=== PATIENT | female | born 1995 | race American Indian/Alaskan Native ===

== ENCOUNTER 2019-03-12 21:57 | Emergency (ER) | payer MEDICAID, OTHER ==
[2019-03-12 23:15] VITALS: BP 103/60
[2019-03-13 00:16] LABS: HCG Qualitative,Urine Positive (Negative)
[2019-03-13 00:18] LABS: Bacteria,Urine 2+ /HPF (Negative); Bilirubin,Urine NEG (Negative); Blood,Urine NEG (Negative); Color,Urine Straw (Yellow); Protein,Urine <15 mg/dL mg/dL (Negative); Urobilinogen,Urine < 2.0 mg/dL (<2.0)
[2019-03-13] MEDS ORDERED: TYLENOL PO ONE (00:29)
[2019-03-13 00:51] LABS: Hematocrit 34.5 % (30.3-42.9); Hemoglobin 11.4 gm/dl (10.1-14.3); Mean Corpuscular HGB Conc 33 % (30-34); Mean Corpuscular Volume 83 fl (79-97); Platelet Count 303 K/mm3 (140-440); Red Blood Count 4.18 M/mm3 (3.65-5.03); Red Cell Distribution Width 15.3 % (13.2-15.2)
[2019-03-13 01:13] LABS: Alanine Aminotransferase 41 units/L (7-56); Albumin 3.5 g/dL (3.9-5); BUN/Creatinine Ratio 16; Blood Urea Nitrogen 8 mg/dL (7-17); Calcium 9.4 mg/dL (8.4-10.2); Hemolysis Index 34
[2019-03-13 03:23] LABS: Band Neutrophils # (Manual) 0.1 K/mm3; Basophils % (Manual) 0 % (0.0-1.8); Total Cells Counted 100
[2019-03-13 03:24] LABS: Anisocytosis 1+; Hypochromasia 1+
--- NOTE | 2019-03-13 04:31 | Emergency Department Report ---
ED Abdominal Pain HPI - General Chief Complaint: Abdominal Pain Stated Complaint: ABD CRAMPS Time Seen by Provider: 03/13/19 00:10 Source: patient Mode of arrival: Ambulatory Limitations: No Limitations - History of Present Illness Initial Comments: Patient is a A0 23-year-old -[place] female who is approximately 6 weeks gestation and who has a history of gestational hypertension presents to the ED with complaint of acute onset persistent suprapubic pain for the last 2 days. Patient states that she did a home test which was positive but wasn't sure. Patient denies fever, chills, nausea, vomiting, dizziness, diarrhea, dysuria, urinary frequency and urgency, vaginal bleeding, low back pain or History headache. MD Complaint: abdominal pain (suprapubic) -: Sudden, days(s) (2) Location: suprapubic Radiation: suprapubic Migration to: suprapubic Severity: moderate Severity scale (0 -10): 4 Quality: aching, dull Consistency: constant Improves With: nothing Worsens With: nothing Associated Symptoms: denies: nausea, vomiting, diarrhea, fever, chills, dysuria, hematemesis, hematochezia, melena, hematuria, anorexia, other - Related Data LMP (females 10-50): 2 months Home Medications Medication Instructions Recorded Confirmed Last Taken One-A-Day 1 Dha Sfgl PO DAILY 08/31/18 08/30/18 0900 Previous Rx's Medication Instructions Recorded Last Taken Type Ciprofloxacin HCl [Cipro] 500 mg PO Q12H #14 tab 01/23/15 08/30/18 09:00 Rx Ibuprofen [Motrin 800 MG tab] 800 mg PO TID PRN #21 tablet 01/23/15 08/30/18 09:00 Rx Allergies Allergy/AdvReac Type Severity Reaction Status Date / Time No Known Allergies Allergy Verified 03/27/14 13:24 ED Review of Systems ROS: Stated complaint: ABD CRAMPS Other details as noted in HPI Comment: All other systems reviewed and negative Constitutional: denies: chills, fever Eyes: denies: eye pain, eye discharge, vision change ENT: denies: ear pain, throat pain Respiratory: denies: cough, shortness of breath, wheezing Cardiovascular: denies: chest pain, palpitations Endocrine: no symptoms reported Gastrointestinal: abdominal pain (suprapubic). denies: nausea, diarrhea Genitourinary: denies: urgency, dysuria, discharge Musculoskeletal: denies: back pain, joint swelling, arthralgia Skin: denies: rash, lesions Neurological: denies: headache, weakness, paresthesias Psychiatric: denies: anxiety, depression Hematological/Lymphatic: denies: easy bleeding, easy bruising ED Past Medical Hx - Past Medical History Previous Medical History?: Yes Hx Hypertension: Yes Hx Diabetes: No Hx Deep Vein Thrombosis: No Hx Renal Disease: No Hx Sickle Cell Disease: No Hx Seizures: No Hx Asthma: No Hx HIV: No Additional medical history: eczema - Surgical History Past Surgical History?: No - Social History Smoking Status: Never Smoker Substance Use Type: None - Medications Home Medications: Home Medications Medication Instructions Recorded Confirmed Last Taken Type Ciprofloxacin HCl [Cipro] 500 mg PO Q12H #14 tab 01/23/15 08/31/18 08/30/18 09:00 Rx Ibuprofen [Motrin 800 MG tab] 800 mg PO TID PRN #21 tablet 01/23/15 08/31/18 08/30/18 09:00 Rx One-A-Day 1 Dha Sfgl PO DAILY 08/31/18 08/30/18 History 0900 ED Physical Exam - General Limitations: No Limitations General appearance: alert, in no apparent distress - Head Head exam: Present: atraumatic, normocephalic, normal inspection - Eye Eye exam: Present: normal appearance, PERRL, EOMI. Absent: scleral icterus, conjunctival injection Pupils: Present: normal accommodation - ENT ENT exam: Present: normal exam, normal orophraynx, mucous membranes moist, TM's normal bilaterally, normal external ear exam - Neck Neck exam: Present: normal inspection, full ROM - Respiratory Respiratory exam: Present: normal lung sounds bilaterally. Absent: respiratory distress, wheezes, rales, rhonchi, chest wall tenderness, accessory muscle use, decreased breath sounds, prolonged expiratory - Cardiovascular Cardiovascular Exam: Present: regular rate, normal rhythm, normal heart sounds. Absent: systolic murmur, diastolic murmur, rubs, gallop - GI/Abdominal GI/Abdominal exam: Present: soft, tenderness (mild in suprapubic area), normal bowel sounds. Absent: distended, guarding, hyperactive bowel sounds, hypoactive bowel sounds, organomegaly - Rectal Rectal exam: Present: deferred - Extremities Exam Extremities exam: Present: normal inspection, full ROM, normal capillary refill - Back Exam Back exam: Present: normal inspection, full ROM. Absent: tenderness, CVA tenderness (L), muscle spasm, paraspinal tenderness, vertebral tenderness - Neurological Exam Neurological exam: Present: alert, oriented X3, CN II-XII intact, normal gait, reflexes normal - Psychiatric Psychiatric exam: Present: normal affect, normal mood - Skin Skin exam: Present: warm, dry, intact, normal color. Absent: rash ED Course Vital Signs 03/12/19 23:11 Temperature 97.8 F Pulse Rate 58 L Respiratory 18 Rate Blood Pressure 103/60 O2 Sat by Pulse 100 Oximetry - Reevaluation(s) Reevaluation #1: 03/13/19 05:55 Patient is alert and oriented 3 and is not in distress with normal vital signs. Lab test results were reviewed and [place] [id number], and a positive urine test. Urinalysis unremarkable. Patient was treated for pain in the ED and transvaginal and ultrasound she'll a single IUP at approximately 6 weeks' gestation. heart rate of 121 bpm. The right ear is normal but the left ovary containing cysts measuring up to 2.7 cm. Patient was advised to maintain complete pelvic rest, and to follow-up with the SENIOR MANUFACTURING TEST ENGINEER physician in 5-7 days for reevaluation. Patient advised to return to the ED immediately if symptoms get worse. ED Medical Decision Making - Lab Data Result diagrams: 03/13/19 00:32 03/13/19 00:36 - Radiology Data Radiology results: report reviewed, image reviewed US / Transvaginal US: shows a single IUP at approximately 6 weeks' gestation with a FHR of 121 bpm. Left ovary contains cysts measuring 2.7 cm but the right ovary is unremarkable - Medical Decision Making Patient is alert and oriented 3 and is not in distress with normal vital signs. Lab test results were reviewed and [place] [id number], and a positive urine test. Urinalysis unremarkable. Jennifer arriaga was treated for pain in the ED and transvaginal and ultrasound shows a single IUP at approximately 6 weeks' gestation. heart rate of 121 bpm. The right ear is normal but the left ovary containing cysts measuring up to 2.7 cm. Patient was advised to maintain complete pelvic rest, and to follow- up with the SENIOR MANUFACTURING TEST ENGINEER physician in 5-7 days for reevaluation. Patient advised to return to the ED immediately if symptoms get worse. - Differential Diagnosis Threatened miscarriage, Acute UTI, Constipation, Ectopic Critical care attestation.: If time is entered above; I have spent that time in minutes in the direct care of this critically ill patient, excluding procedure time. ED Disposition Clinical Impression: Threatened miscarriage in early , Abdominal pain during in first trimester Disposition: DC- TO HOME OR SELFCARE Is pt being admited?: No Does the pt Need Aspirin: No Condition: Stable Instructions: Threatened Miscarriage (ED), Abdominal Pain (ED) Additional Instructions: Maintain a complete pelvic rest. Follow-up with your SENIOR MANUFACTURING TEST ENGINEER physician in 5-7 days for reevaluation. Return to the ED immediately if symptoms get worse. Referrals: CALEB LYNCH MD [Primary Care Provider] - 3-5 Days Time of Disposition: 06:00 Print Language: FINNISH
--- NOTE | 2019-03-13 05:07 | Ultrasound Report ---
PROCEDURE: US OB <= 14 WEEKS FETUS TECHNIQUE: Real-time transabdominal sonography of the uterus, placenta, amniotic fluid, adnexa, and fetus was performed with image documentation. Measurements were obtained to determine age/size. M-mode Doppler was used to document heartbeat. ADDITIONAL GESTATION: None. HISTORY: pain COMPARISONS: None . FINDINGS: CRL: 3.2 mm, which corresponds to a gestational age of: 6 weeks, 0 days. Yolk Sac: Appropriate for gestational age. . Embryonic Cardiac Activity: 121 bpm . Gestational Sac: Size and shape are appropriate for gestational age Placenta: Normal Amniotic fluid: Appropriate for gestational age. Cervix: Normal. Right Ovary: Normal . Left Ovary: There are cysts measuring up to 2.7 cm. . Estimated delivery date: 11/06/2019 . Uterus and adnexa: Normal. IMPRESSION: Single live intrauterine gestation at approximately 6 weeks . EDC by US 11/06/2019 . This document is electronically signed by Nathan Morrow MD., March 13 2019 05:05:40 AM ET
--- NOTE | 2019-03-13 05:08 | Ultrasound Report ---
PROCEDURE: US OB TRANSVAGINAL TECHNIQUE: Real-time transvaginal sonography of the uterus, placenta, amniotic fluid, adnexa, and fe tus was performed with image documentation. Measurements were obtained to determine age/size. M -mode Doppler was used to document heartbeat. ADDITIONAL GESTATION: None. HISTORY: pain COMPARISONS: None . FINDINGS: CRL: 3.2 mm, which corresponds to a gestational age of: 6 weeks, 0 days. Yolk Sac: Appropriate for gestational age. . Embryonic Cardiac Activity: 121 bpm . Gestational Sac: Size and shape are appropriate for gestational age Placenta: Normal Amniotic fluid: Appropriate for gestational age. Cervix: Normal. Right Ovary: Normal . Left Ovary: There are cysts measuring up to 2.7 cm. . Estimated delivery date: 11/06/2019 . Uterus and adnexa: Normal. IMPRESSION: Single live intrauterine gestation at approximately 6 weeks . EDC by US 11/06/2019 . This document is electronically signed by Nathan Morrow MD., March 13 2019 05:06:10 AM ET
== END 2019-03-13 06:09 | disposition home or self-care (01) ==
LOC: ED 21:57
DX: O20.0 Threatened abortion (principal); O16.1 Unspecified maternal hypertension, first trimester; Z3A.01 Less than 8 weeks gestation of pregnancy
CPT/HCPCS: 36415; 76801; 76817; 80053; 81001; 81025; 84702; 85007; 85025; 99284

== ENCOUNTER 2019-03-24 15:33 | Emergency (ER) | payer SELFPAY ==
[2019-03-24] MEDS ORDERED: ALUM-MAG HYDROX-SIMETH 200-200-20MG/5ML PO ONE (15:42)
--- NOTE | 2019-03-24 15:42 | Event Note ---
ED Screening Note ED Screening Note: NV OF PAIN RAD UP THROAT NO CARE NO VAG BLEEDING NORMAL DC 8-9 W CANT RECALL LMP TEARFU TACHY This initial assessment/diagnostic orders/clinical plan/treatment(s) is/are subject to change based on patients health status, clinical progression and re- assessment by fellow clinical providers in the ED. Further treatment and workup at subsequent clinical providers discretion. Patient/guardian urged not to elope from the ED as their condition may be serious if not clinically assessed and managed. Initial orders include:
[2019-03-24] MEDS ORDERED: ZOFRAN IV ONE (15:43)
[2019-03-24] MEDS ORDERED: NACL 0.9% 1000 ML 1,000 ML IV ONE (15:43)
[2019-03-24 16:09] LABS: Hematocrit 37.7 % (30.3-42.9); Hemoglobin 12.2 gm/dl (10.1-14.3); Mean Corpuscular HGB Conc 32 % (30-34); Mean Corpuscular Volume 82 fl (79-97); Platelet Count 322 K/mm3 (140-440); Red Cell Distribution Width 15.6 % (13.2-15.2)
[2019-03-24 16:34] LABS: Alanine Aminotransferase 33 units/L (7-56); Albumin 3.7 g/dL (3.9-5); BUN/Creatinine Ratio 13; Blood Urea Nitrogen 5 mg/dL (7-17); Calcium 9.4 mg/dL (8.4-10.2); Hemolysis Index 14
[2019-03-24] MEDS ORDERED: TYLENOL PO ONE (16:36)
[2019-03-24] MEDS ORDERED: ROCEPHIN/NS 1 GM/50 ML 1 GM/50 ML BAG IV ONE (16:38)
--- NOTE | 2019-03-24 17:20 | Emergency Department Report ---
HPI - General Chief Complaint: Nausea/Vomiting/Diarrhea Time Seen by Provider: 03/24/19 15:39 - HPI HPI: Room 24 The patient is a 23-year-old female presenting with a chief complaint of sore throat and fever. Patient states the past 2 days she has had pain in her throat and chest. Patient states she noticed a fever yesterday. Patient has difficulty eating secondary to pain with swallowing. Patient denies abdominal pain or vaginal bleeding Location: Throat Duration: [See above] Quality: [See above] Severity: [See above] Modifying factors: [see above] Context: [see above] Mode of transportation: [not driving] ED Past Medical Hx - Past Medical History Previous Medical History?: No Hx Hypertension: Yes Additional medical history: eczema - Surgical History Past Surgical History?: No - Family History Family history: no significant - Social History Smoking Status: Never Smoker Substance Use Type: None (denies illicit drug use) - Medications Home Medications: Home Medications Medication Instructions Recorded Confirmed Last Taken Type Ciprofloxacin HCl [Cipro] 500 mg PO Q12H #14 tab 01/23/15 08/31/18 08/30/18 09:00 Rx Ibuprofen [Motrin 800 MG tab] 800 mg PO TID PRN #21 tablet 01/23/15 08/31/18 08/30/18 09:00 Rx One-A-Day 1 Dha Sfgl PO DAILY 08/31/18 08/30/18 History 0900 Acetamin/Codeine 120-12Mg/5 ml 5 ml PO Q6H PRN #100 ml 03/24/19 Unknown Rx [Tylenol/Codeine] Amoxicillin/K Clav Oral Liqd 10 ml PO BID #200 bottle 03/24/19 Unknown Rx [Augmentin 250-62.5 mg/5 ml] ED Review of Systems ROS: Stated complaint: CHEST PAIN Other details as noted in HPI Constitutional: fever ENT: throat pain Gastrointestinal: denies: abdominal pain Physical Exam - Physical Exam Vital Signs: Vital Signs 03/24/19 03/24/19 15:43 16:38 Temperature 99.1 F 102.8 F H Pulse Rate 130 H 111 H Respiratory 18 20 Rate Blood Pressure 136/80 [Right] O2 Sat by Pulse 98 98 Oximetry Vital Signs 03/24/19 03/24/19 03/24/19 15:43 16:38 17:35 Temperature 99.1 F 102.8 F H Pulse Rate 130 H 111 H Respiratory 18 20 16 Rate Blood Pressure Blood Pressure 136/80 [Right] O2 Sat by Pulse 98 98 Oximetry 03/24/19 03/24/19 03/24/19 17:56 18:00 18:44 Temperature 99.4 F Pulse Rate 80 Respiratory 20 Rate Blood Pressure 109/62 Blood Pressure 105/61 [Right] O2 Sat by Pulse 99 98 97 Oximetry 03/24/19 03/24/19 18:45 19:00 Temperature Pulse Rate Respiratory Rate Blood Pressure 109/62 105/61 Blood Pressure [Right] O2 Sat by Pulse 98 98 Oximetry Physical Exam: GENERAL: The patient is well-developed well-nourished female lying on stretcher appearing to be in mild discomfort. [] HEENT: Normocephalic. Atraumatic. Extraocular motions are intact. 2+ tonsils bilaterally with exudate NECK: Supple. Trachea midline CHEST/LUNGS: Clear to auscultation. There is no respiratory distress noted. HEART/CARDIOVASCULAR: Regular. There is tachycardia. There is no gallop rub or murmur. ABDOMEN: Abdomen is soft, nontender. Patient has normal bowel sounds. There is no abdominal distention. SKIN: There is no rash. There is no edema. There is no diaphoresis. NEURO: The patient is awake, alert, and oriented. The patient is cooperative. The patient has normal speech MUSCULOSKELETAL: There is no evidence of acute injury. ED Course Vital Signs 03/24/19 03/24/19 15:43 16:38 Temperature 99.1 F 102.8 F H Pulse Rate 130 H 111 H Respiratory 18 20 Rate Blood Pressure 136/80 [Right] O2 Sat by Pulse 98 98 Oximetry ED Medical Decision Making - Lab Data Result diagrams: 03/24/19 15:57 03/24/19 15:57 - Radiology Data Radiology results: report reviewed (pelvic ultrasound), image reviewed (pelvic ultrasound) [facility] [address] [place] [address] Ultrasound Report Signed Patient: MISAEL BILLY MR #: [id number] : 1995 Acct:[id number] Age/Sex: 23 / F ADM Date: 03/24/19 Loc: ED Attending Dr: Ordering Physician: JORGE LUU Date of Service: 03/24/19 Procedure(s): US OB transvaginal Accession Number(s): [id number] cc: JORGE DupontValentina LUU PROCEDURE: US OB TRANSVAGINAL TECHNIQUE: Real-time transabdominal and transvaginal sonography of the uterus, placenta, amniotic fluid, adnexa, and fetus was performed with image documentation. Measurements were obtained to determine age/size. M-mode Doppler was used to document heartbeat. HISTORY: abd pain with nausea and vomiting. Pelvic pain with cramping. Serum beta hCG quantitation 81,206. Unknown LMP. COMPARISONS: Ultrasound pelvis 03/13/2019 . FINDINGS: CRL: 15.9 mm, which corresponds to a gestational age of: 8 weeks, 0 days. Yolk Sac: Normal . Embryonic Cardiac Activity: 183 BPM . Gestational Sac: Normal . Uterus: Enlarged measuring 9.6 x 7.3 x 7.4 cm Right Ovary: Normal . Right ovary measures 2.8 x 1.5 x 1.9 cm Left Ovary: Normal . Left ovary measures 3.6 x 2.4 x 3.1 cm. There is a cyst in left ovary, likely corpus luteum Estimated delivery date: 11/03/2019 . Comment: Complete anatomic survey at 18-20 weeks suggested . IMPRESSION: 1. Single living intrauterine gestation at approximately 8 weeks 0 days . 2. EDC by US 11/03/2019 . This document is electronically signed by Diamond Taylor MD., March 24 2019 07:45:09 PM ET Transcribed By: [facility] Dictated By: DIAMOND TAYLOR MD Electronically Authenticated By: DIAMOND TAYLOR MD Signed Date/Time: 03/24/191946 DD/ 50 TD/TT: 03/24/191850 - Differential Diagnosis tonsillitis Critical care attestation.: If time is entered above; I have spent that time in minutes in the direct care of this critically ill patient, excluding procedure time. ED Disposition Clinical Impression: Exudative tonsillitis, Acute sore throat Disposition: DC-01 TO HOME OR SELFCARE Is pt being admited?: No Does the pt Need Aspirin: No Condition: Stable Instructions: Tonsillitis (ED) Additional Instructions: Return to the emergency department immediately should you develop worsening symptoms, fever, inability to tolerate food or liquid or any other concerns. Prescriptions: Amoxicillin/K Clav Oral Liqd [Augmentin 250-62.5 mg/5 ml] 10 ml PO BID #200 bottle Acetamin/Codeine 120-12Mg/5 ml [Tylenol/Codeine] 5 ml PO Q6H PRN #100 ml PRN Reason: Pain Referrals: [facility] MD NATI [Primary Care Provider] - 3-5 Days DIAMOND LEE MD [Staff Physician] - 3-5 Days (Dr. Lee is an crust sorter. (Ear nose and throat doctor). Please follow up in for further evaluation) RYLAND CARR MD [Staff Physician] - 3-5 Days (Dr. Carr is an SPRINKLING SYSTEM IRRIGATOR. Please follow up with him to be established as a patient) Time of Disposition: 20:11
[2019-03-24 19:09] VITALS: BP 105/61
[2019-03-24] MEDS ORDERED: LIDOCAINE VISCOUS 2% PO ONE (19:35)
--- NOTE | 2019-03-24 19:47 | Ultrasound Report ---
PROCEDURE: US OB TRANSVAGINAL TECHNIQUE: Real-time transabdominal and transvaginal sonography of the uterus, placenta, amniotic fl uid, adnexa, and fetus was performed with image documentation. Measurements were obtained to determin e age/size. M-mode Doppler was used to document heartbeat. HISTORY: abd pain with nausea and vomiting. Pelvic pain with cramping. Serum beta hCG quantitation 81 ,206. Unknown LMP. COMPARISONS: Ultrasound pelvis 03/13/2019 . FINDINGS: CRL: 15.9 mm, which corresponds to a gestational age of: 8 weeks, 0 days. Yolk Sac: Normal . Embryonic Cardiac Activity: 183 BPM . Gestational Sac: Normal . Uterus: Enlarged measuring 9.6 x 7.3 x 7.4 cm Right Ovary: Normal . Right ovary measures 2.8 x 1.5 x 1.9 cm Left Ovary: Normal . Left ovary measures 3.6 x 2.4 x 3.1 cm. There is a cyst in left ovary, likely c orpus luteum Estimated delivery date: 11/03/2019 . Comment: Complete anatomic survey at 18-20 weeks suggested . IMPRESSION: 1. Single living intrauterine gestation at approximately 8 weeks 0 days . 2. EDC by US 11/03/2019 . This document is electronically signed by Diamond Taylor MD., March 24 2019 07:45:09 PM ET
--- NOTE | 2019-03-24 19:56 | Ultrasound Report ---
PROCEDURE: Limited transabdominal obstetrical ultrasound. TECHNIQUE: Real-time limited sonographic examination was performed for evaluation of each fetus with image documentation (1 or more fetuses). HISTORY: Pelvic pain, nausea and vomiting, . COMPARISONS: Obstetrical ultrasound 03/13/2019. FINDINGS: The uterus measures 9.6 cm x 7.3 cm x 7.4 cm. The myometrium appears normal. There is an intrauterine gestational sac. A pole is present. Cardiac activity is documented at 183 bpm. The crown-rump length measurement is 15.9 mm. This indicates a menstrual age of 8 weeks 0 days. The estimated date o f confinement is 11/03/2019. Neither ovary is identified. IMPRESSION: Single viable intrauterine with a menstrual age of 8 weeks 0 days. This document is electronically signed by Mike Wagner MD., March 24 2019 07:53:54 PM ET
== END 2019-03-24 20:21 | disposition home or self-care (01) ==
LOC: ED 15:33
DX: J03.90 Acute tonsillitis, unspecified (principal)
CPT/HCPCS: 36415; 76801; 76817; 80053; 82140; 83690; 84702; 85027; 86900; 86901; 87040; 96365; 96375; 99284; J0696; J2405; J7030

== ENCOUNTER 2019-06-05 11:59 | Emergency (ER) | payer MEDICAID ==
--- NOTE | 2019-06-05 12:52 | Event Note ---
ED Screening Note Date of service: 06/05/19 Time: 13:26 ED Screening Note: 23 y/o female comes in for spotting and cramps times 4 day. She is 19 weeks and 1 day. Is followed by [facility]. LMP unknow This initial assessment/diagnostic orders/clinical plan/treatment(s) is/are subject to change based on patients health status, clinical progression and re- assessment by fellow clinical providers in the ED. Further treatment and workup at subsequent clinical providers discretion. Patient/guardian urged not to elope from the ED as their condition may be serious if not clinically assessed and managed. Initial orders include:
[2019-06-05 13:53] LABS: Basophils % (Auto) 0.2 % (0.0-1.8); Eosinophils # (Auto) 0.8 K/mm3 (0.0-0.4); Eosinophils % (Auto) 6.9 % (0.0-4.3); Hemoglobin 11.1 gm/dl (10.1-14.3); Lymphocytes # (Auto) 2.9 K/mm3 (1.2-5.4); Lymphocytes % (Auto) 24.6 % (13.4-35.0); Mean Corpuscular HGB Conc 34 % (30-34); Mean Corpuscular Volume 84 fl (79-97); Monocytes # (Auto) 1.1 K/mm3 (0.0-0.8); Monocytes % (Auto) 9.4 % (0.0-7.3); Platelet Count 264 K/mm3 (140-440); Red Blood Count 3.92 M/mm3 (3.65-5.03); Red Cell Distribution Width 16.5 % (13.2-15.2)
[2019-06-05 15:07] LABS: Bacteria,Urine 2+ /HPF (Negative); Bilirubin,Urine NEG (Negative); Blood,Urine NEG (Negative); Color,Urine Yellow (Yellow); Mucus,Urine FEW /HPF; Protein,Urine <15 mg/dL mg/dL (Negative); Urobilinogen,Urine < 2.0 mg/dL (<2.0)
--- NOTE | 2019-06-05 15:59 | Emergency Department Report ---
ED Female HPI - General Chief complaint: Vaginal Bleeding Stated complaint: 19WKS /SPOTTING/ABD/PELVIC PAIN Time Seen by Provider: 06/05/19 12:05 Source: patient Mode of arrival: Ambulatory Limitations: No Limitations - History of Present Illness Initial comments: Felecia is a very pleasant healthy female with history of ovarian cyst who is currently 19 weeks 1 day according to LMP October 29, 2018. She has had pelvic cramping and vaginal spotting. Pelvic cramping began 4 days ago. Vaginal spotting began 1 day ago. Mild symptoms. 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 Estimated due date October 29, 2019 or October 19, 2019 Complaint: vaginal bleeding, pelvic pain -: Gradual, days(s) (4) Severity: mild Quality: cramping Consistency: intermittent Improves with: none Worsens with: none Are you Now?: Yes Associated Symptoms: vaginal bleeding - Related Data : 2 Para: 1 Home Medications Medication Instructions Recorded Confirmed Last Taken One-A-Day 1 Dha Sfgl PO DAILY 08/31/18 08/30/18 0900 Previous Rx's Medication Instructions Recorded Last Taken Type Ciprofloxacin HCl [Cipro] 500 mg PO Q12H #14 tab 01/23/15 08/30/18 09:00 Rx Ibuprofen [Motrin 800 MG tab] 800 mg PO TID PRN #21 tablet 01/23/15 08/30/18 09:00 Rx Acetamin/Codeine 120-12Mg/5 ml 5 ml PO Q6H PRN #100 ml 03/24/19 Unknown Rx [Tylenol/Codeine] Amoxicillin/K Clav Oral Liqd 10 ml PO BID #200 bottle 03/24/19 Unknown Rx [Augmentin 250-62.5 mg/5 ml] Allergies Allergy/AdvReac Type Severity Reaction Status Date / Time No Known Allergies Allergy Verified 06/05/19 12:04 ED Review of Systems ROS: Stated complaint: 19WKS /SPOTTING/ABD/PELVIC PAIN Other details as noted in HPI Comment: All other systems reviewed and negative Constitutional: denies: fever, malaise Gastrointestinal: abdominal pain Genitourinary: other (vaginal spotting) ED Past Medical Hx - Past Medical History Previous Medical History?: No Hx Hypertension: Yes Additional medical history: eczema - Surgical History Past Surgical History?: No - Social History Smoking Status: Never Smoker Substance Use Type: None - Medications Home Medications: Home Medications Medication Instructions Recorded Confirmed Last Taken Type Ciprofloxacin HCl [Cipro] 500 mg PO Q12H #14 tab 01/23/15 08/31/18 08/30/18 09:00 Rx Ibuprofen [Motrin 800 MG tab] 800 mg PO TID PRN #21 tablet 01/23/15 08/31/18 08/30/18 09:00 Rx One-A-Day 1 Dha Sfgl PO DAILY 08/31/18 08/30/18 History 09 Acetamin/Codeine 120-12Mg/5 ml 5 ml PO Q6H PRN #100 ml 03/24/19 Unknown Rx [Tylenol/Codeine] Amoxicillin/K Clav Oral Liqd 10 ml PO BID #200 bottle 03/24/19 Unknown Rx [Augmentin 250-62.5 mg/5 ml] ED Physical Exam - General Limitations: No Limitations General appearance: alert, in no apparent distress - Head Head exam: Present: atraumatic, normocephalic - Eye Eye exam: Present: normal appearance - ENT ENT exam: Present: mucous membranes moist - Neck Neck exam: Present: normal inspection, full ROM - Respiratory Respiratory exam: Present: normal lung sounds bilaterally. Absent: respiratory distress, wheezes, rales, rhonchi - Cardiovascular Cardiovascular Exam: Present: regular rate, normal rhythm. Absent: systolic murmur, diastolic murmur, rubs, gallop - GI/Abdominal GI/Abdominal exam: Present: soft, normal bowel sounds. Absent: distended, tenderness, guarding, rebound - Extremities Exam Extremities exam: Present: normal inspection - Back Exam Back exam: Present: normal inspection - Neurological Exam Neurological exam: Present: alert, oriented X3 - Psychiatric Psychiatric exam: Present: normal affect, normal mood - Skin Skin exam: Present: warm, dry, intact, normal color. Absent: rash ED Course Vital Signs 06/05/19 06/05/19 13:22 17:40 Temperature 97.9 F 98.1 F Pulse Rate 77 78 Respiratory 18 16 Rate Blood Pressure 103/55 Blood Pressure 103/55 95/53 [Right] O2 Sat by Pulse 100 100 Oximetry ED Medical Decision Making - Lab Data Result diagrams: 06/05/19 13:35 Laboratory Results - last 24 hr 06/05/19 06/05/19 06/05/19 13:35 13:35 13:35 WBC 11.6 H RBC 3.92 Hgb 11.1 Hct 33.0 MCV 84 MCH 28 MCHC 34 RDW 16.5 H Plt Count 264 Lymph % (Auto) 24.6 Worth % (Auto) 9.4 H Eos % (Auto) 6.9 H Baso % (Auto) 0.2 Lymph # 2.9 Worth # 1.1 H Eos # 0.8 H Baso # 0.0 Seg Neutrophils % 58.9 Seg Neutrophils # 6.8 HCG, Quant 24537 H Urine Color Urine Turbidity Urine pH Ur Specific Vivian Urine Protein Urine Glucose (UA) Urine Ketones Urine Blood Urine Nitrite Urine Bilirubin Urine Urobilinogen Ur Leukocyte Esterase Urine WBC (Auto) Urine RBC (Auto) U Epithel Cells (Auto) Urine Bacteria (Auto) Urine Mucus Blood Type B POSITIVE Ord Rhogam Gestat Weeks Rh pos 06/05/19 14:46 WBC RBC Hgb Hct MCV MCH MCHC RDW Plt Count Lymph % (Auto) Worth % (Auto) Eos % (Auto) Baso % (Auto) Lymph # Worth # Eos # Baso # Seg Neutrophils % Seg Neutrophils # HCG, Quant Urine Color Yellow Urine Turbidity Slightly-cloudy Urine pH 5.0 Ur Specific Vivian 1.024 Urine Protein <15 mg/dl Urine Glucose (UA) Neg Urine Ketones Neg Urine Blood Neg Urine Nitrite Neg Urine Bilirubin Neg Urine Urobilinogen < 2.0 Ur Leukocyte Esterase Sm Urine WBC (Auto) 4.0 Urine RBC (Auto) 4.0 U Epithel Cells (Auto) 12.0 Urine Bacteria (Auto) 2+ Urine Mucus Few Blood Type Ord Rhogam Gestat Weeks - Radiology Data Radiology results: report reviewed OB ultrasound revealed viable intrauterine 18 weeks 4 days heart tones 1 51 bpm - Medical Decision Making Ms. Zacarias presents with threatened miscarriage pelvic cramping and vaginal spotting. No indication of peritonitis on exam. I have reviewed labs. Urinalysis contaminated sample. No indication otherwise of UTI. Viable IUP confirmed on ultrasound. Patient will follow-up with her primary associate software application engineer. Critical care attestation.: If time is entered above; I have spent that time in minutes in the direct care of this critically ill patient, excluding procedure time. ED Disposition Clinical Impression: Threatened miscarriage Disposition: DC-01 TO HOME OR SELFCARE Is pt being admited?: No Does the pt Need Aspirin: No Condition: Stable Instructions: Threatened Miscarriage (ED) Additional Instructions: Please see her primary associate software application engineer next week.
--- NOTE | 2019-06-05 18:01 | Ultrasound Report ---
OB ultrasound. 06/05/2019. HISTORY: Vaginal bleeding. FINDINGS: OB ultrasound was performed. A viable intrauterine is dated 18 weeks 4 days. Feta l heart tones are 151 bpm. position is cephalic. The placenta is anteriorly located and free of the os. Amniotic fluid is subjectively normal. survey is unremarkable. Sagittal spine and nose/lips cannot be evaluated due to positioning. Estimated weight is 237 g. IMPRESSION: Viable intrauterine dated 18 weeks 4 days by ultrasound. Signer Name: Eugene Lawson MD Signed: 06/05/2019 5:57 PM Workstation Name: [id number]
[2019-06-05 18:57] VITALS: BP 108/35
== END 2019-06-05 18:55 | disposition home or self-care (01) ==
LOC: ED 11:59
DX: O20.0 Threatened abortion (principal); O16.2 Unspecified maternal hypertension, second trimester; Z3A.19 19 weeks gestation of pregnancy; Z79.899 Other long term (current) drug therapy; Z79.1 Long term (current) use of non-steroidal anti-inflammatories (NSAID)
CPT/HCPCS: 36415; 76805; 81001; 84702; 85025; 86900; 86901; 96372

== ENCOUNTER 2019-06-25 07:52 | Outpatient (CLI) | payer MEDICAID ==
[2019-06-25 08:41] VITALS: BP 128/65
[2019-06-25 09:39] LABS: Bilirubin,Urine NEG (Negative); Blood,Urine NEG (Negative); Color,Urine Yellow (Yellow); Mucus,Urine FEW /HPF; Protein,Urine <15 mg/dL mg/dL (Negative); Urobilinogen,Urine < 2.0 mg/dL (<2.0)
[2019-06-25 09:56] LABS: Amphetamine Screen,Urine PRESUMPTIVE NEGATIVE; Benzodiazepines Screen,Urine PRESUMPTIVE NEGATIVE; Cannabinoid Screen,Urine PRESUMPTIVE NEGATIVE; Cocaine Screen,Urine PRESUMPTIVE NEGATIVE; Methadone Screen,Urine PRESUMPTIVE NEGATIVE
[2019-06-25 10:49] LABS: Opiate Screen,Urine PRESUMPTIVE NEGATIVE
[2019-06-25] MEDS ORDERED: LACTATED RINGERS 500 ML IV ONE (11:00)
== END 2019-06-25 11:16 | disposition home or self-care (01) ==
LOC: TRG 07:52
PROVIDERS: ATTEND Obstetrics & Gynecology
DX: O26.892 Other specified pregnancy related conditions, second trimester (principal); R10.9 Unspecified abdominal pain; Z3A.22 22 weeks gestation of pregnancy
CPT/HCPCS: 59025; 80307; 81001

== ENCOUNTER 2019-10-01 11:11 | Outpatient (CLI) | payer MEDICAID ==
[2019-10-01] MEDS ORDERED: LACTATED RINGERS 1,000 ML IV SCH (12:00)
[2019-10-01 12:24] LABS: Bacteria,Urine 1+ /HPF (Negative); Bilirubin,Urine NEG (Negative); Blood,Urine LG (Negative); Color,Urine Yellow (Yellow); Mucus,Urine FEW /HPF; Protein,Urine <15 mg/dL mg/dL (Negative); Urobilinogen,Urine < 2.0 mg/dL (<2.0)
[2019-10-01 14:38] VITALS: BP 112/64
--- NOTE | 2019-10-01 14:40 | Ultrasound Report ---
ULTRASOUND BIOPHYSICAL PROFILE ULTRASOUND OB LIMITED INDICATION: vaginal bleeding TECHNIQUE: Transabdominal ultrasound imaging. COMPARISON: 09/20/2019 FINDINGS: breathing movement = 2 Gross body movement = 2 tone = 2 Qualitative amniotic fluid volume = 2 Total biophysical score = 8/8 Amniotic fluid index is 11.0 cm. Presentation is cephalic. heart rate is 138 beats per minute. The placenta is anterior, right lateral, grade 1. No previa or abruption. IMPRESSION: biophysical profile equals 8/8. Signer Name: Clark Guthrie Jr, MD Signed: 10/01/2019 2:36 PM Workstation Name: [id number]
== END 2019-10-01 15:59 | disposition home or self-care (01) ==
LOC: TRG 11:11
PROVIDERS: ATTEND Obstetrics & Gynecology
DX: O47.03 False labor before 37 completed weeks of gestation, third trimester (principal); Z3A.36 36 weeks gestation of pregnancy
CPT/HCPCS: 59025; 76815; 76819; 81001

== ENCOUNTER 2019-10-10 23:46 | Inpatient (IN) | payer MEDICAID ==
[2019-10-11 00:18] LABS: Basophils % (Auto) 0.3 % (0.0-1.8); Eosinophils # (Auto) 0.4 K/mm3 (0.0-0.4); Eosinophils % (Auto) 2.6 % (0.0-4.3); Hematocrit 34.4 % (30.3-42.9); Hemoglobin 11.6 gm/dl (10.1-14.3); Lymphocytes # (Auto) 2.6 K/mm3 (1.2-5.4); Lymphocytes % (Auto) 18.8 % (13.4-35.0); Mean Corpuscular HGB Conc 34 % (30-34); Mean Corpuscular Volume 88 fl (79-97); Monocytes # (Auto) 1.4 K/mm3 (0.0-0.8); Monocytes % (Auto) 10.1 % (0.0-7.3); Platelet Count 217 K/mm3 (140-440); Red Blood Count 3.91 M/mm3 (3.65-5.03); Red Cell Distribution Width 13.3 % (13.2-15.2)
[2019-10-11] MEDS ORDERED: METOCLOPRAMIDE 10 MG/2 ML INJ IV ONE (00:19)
[2019-10-11] MEDS ORDERED: BICITRA ORAL LIQD 30ML PO ONE (00:19)
[2019-10-11] MEDS ORDERED: FAMOTIDINE 20 MG/2 ML INJ IV ONE ×2 (00:19→11:54)
[2019-10-11] MEDS: LACTATED RINGERS 1,000 ML IV SCH ×3 (00:56→06:34)
[2019-10-11] MEDS ORDERED: ceFAZolin/Water 2 GM/20 ML 2 GM/20 ML SYRINGE IV NR (01:00)
[2019-10-11] MEDS ORDERED: LACTATED RINGERS 1,000 ML IV SCH ×2 (01:00→02:00)
[2019-10-11] MEDS ORDERED: OXYTOCIN 20 UNIT/1000ML DRIP 20 UNITS/1,000 ML BAG IV SCH ×2 (01:00→02:00)
--- NOTE | 2019-10-11 01:08 | Ultrasound Report ---
ULTRASOUND BIOPHYSICAL PROFILE AND LIMITED OB PELVIC ULTRASOUND INDICATION / CLINICAL INFORMATION: Rule out abruption. Pelvic pain. COMPARISON: None available. FINDINGS: BREATHING MOVEMENT = 2 GROSS BODY MOVEMENT = 2 TONE = 2 QUALITATIVE AMNIOTIC FLUID VOLUME = 2 TOTAL BIOPHYSICAL SCORE = 8/8 PRESENTATION: Cephalic. HEART RATE (beats per minute): 142 The placenta is located in the anterior fundus, is grade 1 and is free of the os. There is no evidenc e of abruption. The deepest vertical pocket of amniotic fluid measures 2.5 cm. IMPRESSION: 1. biophysical profile = 8/8 2. No evidence of placental abruption. Signer Name: Taz West MD Signed: 10/11/2019 1:03 AM Workstation Name: [id number]
--- NOTE | 2019-10-11 01:22 | Event Note ---
Date: 10/11/19 Performed cervical exam upon request of . ( managing care of pt.). SVE /. MD notified of cervical exam.
[2019-10-11] MEDS ORDERED: ePHEDrine SULFATE 50 MG/1 ML INJ IV PRN ×2 (01:55→09:44)
[2019-10-11] MEDS ORDERED: LIDOCAINE (2%) 20 MG/1 ML VIAL 20 ML MDV INFILTRATI ONE (01:55)
[2019-10-11] MEDS ORDERED: AMPICILLIN/NS 2 GM/100 ML 2 GM/100 ML BAG IV ONE ×2 (01:55→08:10)
[2019-10-11] MEDS ORDERED: TERBUTALINE 1 MG/1 ML INJ SUB-Q PRN (01:55)
[2019-10-11] MEDS ORDERED: MINERAL OIL 30 ML ORAL LIQD PO PRN (01:55)
[2019-10-11] MEDS: BUTORPHANOL 2 MG/1 ML INJ IV PRN ×2 (02:07→06:35)
--- NOTE | 2019-10-11 03:14 | History and Physical Report ---
History of Present Illness Date of examination: 10/11/19 Date of admission: 10/10/19 23:57 Chief complaint: Brought in by EMS for bright red vaginal bleeding. History of present illness: 24 year old brought by EMS to L&D triage with bright red vaginal bleedin g and clots. Patient states she woke up in constant abdominal pain around 10-11 PM this evening and states she also noticed a moderate amount of bright red vaginal bleeding with clots. Patient states she also started having frequent contractions around 11 PM. Patient received care at [facility] and records are not available here in L&D triage for review. LMP unknown; EDC 10/29/2019 (based on first trimester US). No labs are available and these have been drawn upon admission today. Past History Past Medical History: no pertinent history Past Surgical History: no surgical history CREDIT CARD SPECIALIST History: trichomonas (history of trich in the past, has been treated and cured). denies: abnormal PAP smear, chlamydia, fibroids, gonorrhea, hepatitis B, hepatitis C, herpes, HIV, syphilis Family/Genetic History: none Social history: lives with family, full code. denies: smoking, alcohol abuse, prescription drug abuse, IV drug use - Obstetrical History Expected Date of Delivery: 10/29/19 Actual Gestation: 37 Week(s) 3 Day(s) : 2 Para: 1 Hx # Term Pregnancies: 1 Number of Pregnancies: 0 Spontaneous Abortions: 0 Induced : 0 Number of Living Children: 1 Medications and Allergies Allergies Allergy/AdvReac Type Severity Reaction Status Date / Time No Known Allergies Allergy Verified 06/05/19 12:04 Home Medications Medication Instructions Recorded Confirmed Last Taken Type Ciprofloxacin HCl [Cipro] 500 mg PO Q12H #14 tab 01/23/15 08/31/18 08/30/18 09:00 Rx Ibuprofen [Motrin 800 MG tab] 800 mg PO TID PRN #21 tablet 01/23/15 08/31/18 08/30/18 09:00 Rx One-A-Day 1 Dha Sfgl PO DAILY 08/31/18 08/30/18 History 0900 Acetamin/Codeine 120-12Mg/5 ml 5 ml PO Q6H PRN #100 ml 03/24/19 Unknown Rx [Tylenol/Codeine] Amoxicillin/K Clav Oral Liqd 10 ml PO BID #200 bottle 03/24/19 Unknown Rx [Augmentin 250-62.5 mg/5 ml] Active Meds: Active Medications Butorphanol Tartrate (Stadol) 2 mg IV Q2H PRN PRN Reason: Pain , Severe (7-10) Last Admin: 10/11/19 02:07 Dose: 2 mg Documented by: Ephedrine Sulfate (Ephedrine Sulfate) 10 mg IV Q2M PRN PRN Reason: Hypotension Lactated Ringer's (Lactated Ringers) 1,000 mls @ 125 mls/hr IV DIRECT DOC Last Admin: 10/11/19 02:05 Dose: 125 mls/hr Documented by: Oxytocin/Sodium Chloride (Pitocin/Ns 20 Unit/1000ml Drip) 20 units in 1,000 mls @ 0 mls/hr IV TITR DOC Lactated Ringer's (Lactated Ringers) 1,000 mls @ 2,250 mls/hr IV PREOP DOC Stop: 10/12/19 01:27 Last Admin: 10/11/19 00:57 Dose: 2,250 mls/hr Documented by: Cefazolin Sodium (Ancef/Sterile Water 2 Gm/20 Ml) 2 gm in 20 mls @ 80 mls/hr IV PREOP NR; Protocol Stop: 10/11/19 23:45 Oxytocin/Sodium Chloride (Pitocin/Ns 20 Unit/1000ml Drip) 20 units in 1,000 mls @ 125 mls/hr IV DIRECT DOC Lactated Ringer's (Lactated Ringers) 1,000 mls @ 125 mls/hr IV DIRECT DOC Ampicillin Sodium (Ampicillin/Ns 1 Gm/50 Ml) 1 gm in 50 mls @ 100 mls/hr IV Q4HR DOC; Protocol Mineral Oil (Mineral Oil) 30 ml PO QHS PRN PRN Reason: Constipation Terbutaline Sulfate (Brethine) 0.25 mg SUB-Q ONCE PRN PRN Reason: Hyperstimulation/Hypertonicity Review of Systems All systems: negative (vaginal bleeding and contractions and abdominal pain) - Vital Signs Vital signs: Vital Signs Pulse BP 82 122/71 10/10/19 23:58 10/10/19 23:58 Temp Pulse Resp BP Pulse Ox 83 122/62 93 10/11/19 02:59 10/11/19 00:59 10/11/19 02:59 - Physical Exam Abdomen: Positive: normal appearance, soft. Negative: distention, tenderness, guarding, rigidity Genitourinary (Female): Positive: normal external genitalia, normal perenium. Negative: perineal/vulvar lesions Vagina: Positive: normal moisture Uterus: Positive: enlarged Extremities: Positive: normal - Obstetrical FHR: category 1 Uterine Contraction Monitor Mode: External Cervical Dilatation: 2 (vaginal bleeding noted) Cervical Effacement Percentage: 70 station: -3 Uterine Contraction Pattern: Irregular Uterine Contraction Intensity: Moderate Results Result Diagrams: 10/11/19 00:05 Abnormal lab results 10/11/19 Range/Units 00:05 WBC 13.9 H (4.5-11.0) K/mm3 [place] % (Auto) 10.1 H (0.0-7.3) % [place] # 1.4 H (0.0-0.8) K/mm3 Seg Neutrophils # 9.5 H (1.8-7.7) K/mm3 All other labs normal. Assessment and Plan A: at 37 3/7 weeks gestation. Vaginal bleeding. Abdominal pain. GBS unknown. P: Admit. Spoke with Dr. Armendariz re: this patient and bright red vaginal bleeding with clots and abdominal pain; he gave orders for admission, US, EFM, and SVE. GBS prophylaxis. Management decisions to be made by MD due to vaginal bleeding. Continuous EFM. Admission labs and OB labs drawn.
[2019-10-11 04:23] LABS: Amphetamine Screen,Urine PRESUMPTIVE NEGATIVE; Benzodiazepines Screen,Urine PRESUMPTIVE NEGATIVE; Cannabinoid Screen,Urine PRESUMPTIVE NEGATIVE; Cocaine Screen,Urine PRESUMPTIVE NEGATIVE; Methadone Screen,Urine PRESUMPTIVE NEGATIVE; Opiate Screen,Urine PRESUMPTIVE NEGATIVE
[2019-10-11 04:49] LABS: Hepatitis C Virus Antibody Non-Reactive (NonReactive)
--- NOTE | 2019-10-11 04:50 | Event Note ---
Date: 10/11/19 SVE 2.
[2019-10-11] MEDS ORDERED: AMPICILLIN/NS 1 GM/50 ML 1 GM/50 ML BAG IV SCH (06:01)
[2019-10-11] MEDS ORDERED: DEXMEDETOMIDINE 200 MCG/2 ML VIAL IV ONE (09:23)
[2019-10-11] MEDS ORDERED: NALOXONE 2 MG/2 ML INJ IV PRN (09:44)
--- NOTE | 2019-10-11 09:44 | Anesthesia Consultation ---
Anesthesia Consult and Med Hx Date of service: 10/11/19 - Airway Anesthetic Teeth Evaluation: Good ROM Head & Neck: Adequate Mental/Hyoid Distance: Adequate Mallampati Class: Class II Intubation Access Assessment: Good - Pulmonary Exam CTA: Yes - Cardiac Exam Cardiac Exam: RRR - Pre-Operative Health Status ASA Pre-Surgery Classification: ASA2, Emergency Proposed Anesthetic Plan: Epidural - Pulmonary Hx Asthma: No COPD: No Hx Pneumonia: No - Cardiovascular System Hx Hypertension: Yes - Central Nervous System Hx Seizures: No Hx Psychiatric Problems: No - Endocrine Hx Renal Disease: No Hx End Stage Renal Disease: No Hx Hypothyroidism: No Hx Hyperthyroidism: No - Hematic Hx Anemia: No Hx Sickle Cell Disease: No - Other Systems Hx Alcohol Use: No
[2019-10-11] MEDS ORDERED: fentaNYL-BUPIV 2 MCG/ML-0.125% 200 MCG/100 ML BAG EPIDURAL ONE (09:45)
[2019-10-11] MEDS ORDERED: fentaNYL-BUPIV 2 MCG/ML-0.125% 200 MCG/100 ML BAG EPIDURAL SCH (10:00)
[2019-10-11] MEDS ORDERED: ONDANSETRON 4 MG/2 ML INJ ONE (11:54)
[2019-10-11] MEDS ORDERED: ONDANSETRON 4 MG/2 ML INJ IV ONE (11:58)
[2019-10-11] MEDS ORDERED: FAMOTIDINE 20 MG/2 ML INJ IV SCH (12:00)
[2019-10-11] MEDS ORDERED: OXYTOCIN DRIP 30 UNITS/500 ML BAG IV SCH (14:00)
[2019-10-11] MEDS ORDERED: LANOLIN/ZINC/DIMETHICONE (LANSINOH) 7 GM TP PRN (16:44)
[2019-10-11] MEDS ORDERED: MAGNESIUM HYDROXIDE (MOM) ORAL LIQD UDC PO PRN (16:44)
[2019-10-11] MEDS ORDERED: WITCH HAZEL/ GLYCERIN PAD TP PRN (16:44)
[2019-10-11] MEDS ORDERED: HYDROcodone/ACETAMINOPHEN 5-325 MG TAB PO PRN (16:44)
--- NOTE | 2019-10-11 17:05 | Procedure Note ---
OB Delivery Note - Delivery Date of Delivery: 10/11/19 Surgeon: RED ORTIZ Estimated blood loss: 200cc - Vaginal Delivery presentation: vertex Delivery position: OA Intrapartum events: other(please specify) (vaginal bleeding) Delivery induction: none Delivery augmentation: rupture of membranes, pitocin Delivery monitor: external FHT, external uterine Route of delivery: Delivery placenta: spontaneous Delivery cord: 3 umbilical vessels Episiotomy: none Delivery laceration: none Anesthesia: none Delivery comments: Spontaneous vaginal delivery at 14:36 of liveborn female infant weighing 5 lb. over intact perineum with apgars of 8/9. Epidural anesthesia. Baby put skin to skin with mom immediately after delivery. Baby dried and suctioned. Spontaneous cry and respirations. 3 vessel cord double clamped and cut. Baby taken to radiant warmer for further suctioning. Cord blood obtained. Spontaneous delivery of intact placenta and membranes at 14:43 by yo mechanism. EBL 200 cc. Pitocin to IV fluids after delivery of placenta. Fundus firm and midline. No lacerations noted. Vaginal sweep negative. Sponge count correct. Mother and baby stable.
--- NOTE | 2019-10-11 18:54 | Event Note ---
Date: 10/11/19 RN called and stated that patient had fallen in room 2008 when she tried to stand up without nurse in room. Went and saw patient. Patient states she had been sitting in chair and that she stood up but epidural hadn't worn off yet and she fell onto both knees on the floor. Patient states she does not have any pain or bruising and she is able to move all extremities normally (patient was able to demonstrate this). Offered patient to get x-rays or evaluation s/p fall. Patient declines x-rays or evaluation at this time. Patient also declines EKG that was ordered earlier, stating that her chest pain totally resolved after she got Pepcid IV.
[2019-10-11] MEDS: IBUPROFEN 600 MG TAB PO SCH (23:19)
[2019-10-12] MEDS: IBUPROFEN 600 MG TAB PO SCH ×2 (05:20→23:48)
[2019-10-12 05:50] LABS: Hematocrit 30.8 % (30.3-42.9); Hemoglobin 10.2 gm/dl (10.1-14.3)
--- NOTE | 2019-10-12 11:43 | Progress Note ---
Assessment and Plan - Patient Problems (1) Status post normal vaginal delivery Current Visit: Yes Status: Acute Plan to address problem: PPD 1 - stable Continue routine orders Discharge to home on 10/13/19 Follow up at [facility] as needed or in 6 weeks for exam Subjective - Subjective Date of service: 10/12/19 Principal diagnosis: PPD #1; s/p Interval history: see H&P, Event Notes and OB Delivery procedure Note Patient reports: appetite normal, voiding normally, pain well controlled, ambulating normally, no dizzy ambulation [place]: doing well, bottle feeding Objective - Vital Signs Latest vital signs: Vital Signs Temp Pulse Resp BP BP Pulse Ox 10/12/19 08:23 98.8 F 67 18 97/45 10/12/19 04:00 98.6 F 78 18 114/68 10/12/19 00:00 98.6 F 66 16 101/78 10/11/19 20:25 99.1 F 78 18 115/65 97 10/11/19 18:53 67 126/56 10/11/19 18:39 79 125/60 10/11/19 18:19 81 101/50 10/11/19 17:53 62 106/54 10/11/19 17:22 80 105/59 10/11/19 17:07 76 107/60 10/11/19 16:52 86 119/67 10/11/19 16:37 65 113/57 10/11/19 16:23 18 119/60 10/11/19 16:22 82 119/60 10/11/19 16:10 80 118/60 10/11/19 16:07 187 H 148/75 10/11/19 15:52 77 105/58 10/11/19 15:42 96.7 F L 10/11/19 15:37 71 109/66 10/11/19 15:22 65 101/61 10/11/19 15:07 67 107/57 10/11/19 15:03 97.5 F L 10/11/19 14:59 96.7 F L 10/11/19 14:56 71 117/58 10/11/19 14:41 78 97/51 10/11/19 14:22 71 97/54 10/11/19 14:07 60 99/54 10/11/19 13:52 75 100/54 10/11/19 13:37 67 99/54 10/11/19 13:22 67 103/59 10/11/19 13:07 77 101/58 10/11/19 12:50 76 97 10/11/19 12:45 77 99 10/11/19 12:40 78 99 10/11/19 12:37 77 94/51 10/11/19 12:35 78 99 10/11/19 12:30 69 98 10/11/19 12:28 65 100/56 10/11/19 12:25 64 99 10/11/19 12:22 80 98/58 10/11/19 12:20 70 98 10/11/19 12:15 66 99 10/11/19 12:10 66 98 10/11/19 12:07 69 98/56 10/11/19 12:05 66 99 10/11/19 12:00 65 99 10/11/19 11:58 68 18 98/56 98 10/11/19 11:55 79 97 10/11/19 11:52 88 98/52 10/11/19 11:50 84 99 10/11/19 11:45 66 99 Intake and Output 10/11/19 10/12/19 10/12/19 23:59 07:59 15:59 Intake Total 600 480 Output Total 300 600 Balance -300 0 480 Intake: Oral 480 Intake, Free Water 600 Output: Urine 300 600 Void 300 600 Other: Total, Intake Amount 480 Total, Output Amount 300 600 # Voids Void 1 1 - Exam Cardiovascular: Present: Regular rate Lungs: Present: Clear to auscultation Abdomen: Present: normal appearance, soft Vulva: both: normal Uterus: Present: normal, firm, fundal height below umbilicus Extremities: Present: normal Comments: scant lochia
--- NOTE | 2019-10-12 11:47 | Discharge Summary ---
Providers - Providers Date of Admission: 10/10/19 23:57 Date of discharge: 10/13/19 Attending physician: AZUL FINCH Primary care physician: AZUL FINCH Hospitalization Reason for admission: active labor, vaginal bleeding, IUP at term Delivery: Episiotomy: none Laceration: none Other procedures: none complications: none Discharge diagnosis: IUP at term delivered baby: female Hospital course: Uncomplicated Condition at discharge: Stable Disposition: MN-01 TO HOME OR SELFCARE - Discharge Diagnoses (1) Status post normal vaginal delivery Status: Acute Plan - Provider Discharge Summary Activity: routine, no sex for 6 weeks, no heavy lifting 4 weeks, no strenuous exercise Diet: routine Instructions: routine Additional instructions: [] Smoking cessation referral if applicable(refer to patient education folder for contact #) [] Refer to [facility] Booklet Call your doctor immediately for: * Fever > 100.5 * Heavy vaginal bleeding ( >1 pad per hour) * Severe persistent headache * Shortness of breath * Reddened, hot, painful area to leg or breast * Drainage or odor from incision. * Keep incision clean and dry at all times and follow doctor's instructions regarding bathing/showering - Follow up plan Follow up: AZUL FINCH MD [Primary Care Provider] - 6 Weeks (Follow up at [facility] as needed or in 6 weeks for exam)
[2019-10-13] MEDS: IBUPROFEN 600 MG TAB PO SCH ×2 (05:16→09:15)
[2019-10-13 15:07] VITALS: BP 110/70
== END 2019-10-13 15:15 | disposition home or self-care (01) | DRG 775 ==
LOC: TRG 23:46 → LD 23:47 → TRG 23:56 → LD 23:57 → OB 10-11 21:40
PROVIDERS: ADMIT Obstetrics & Gynecology; ATTEND Obstetrics & Gynecology
PROC: 10E0XZZ Delivery of Products of Conception, External Approach (ICD-10-PCS; principal; 2019-10-11)
DX: O80 Encounter for full-term uncomplicated delivery (principal); Z3A.37 37 weeks gestation of pregnancy; Z37.0 Single live birth
CPT/HCPCS: 36415; 76815; 76819; 80307; 83036; 85014; 85018; 85025; 86592; 86706; 86762; 86803; 86850; 86900; 86901; 87806; G0378; J0290; J0595; J2405; J2590; J3490; J7120